=== PATIENT | female | born 1995 | race African-American/Black ===

== ENCOUNTER 2020-05-01 18:04 | Emergency (ER) | payer SELFPAY ==
[2020-05-02 12:44] LABS: SARS-CoV-2 MS2 Positive; SARS-CoV-2 N Gene Negative; SARS-CoV-2 S Gene Negative; SARS-CoV-2 by NAA Not Detected (NotDetected); SARS-CoV-2 orf1ab Negative
== END 2020-05-01 18:45 | disposition home or self-care (01) ==
LOC: ERS 18:04
DX: Z20.828 Contact with and (suspected) exposure to other viral communicable diseases (principal); J45.909 Unspecified asthma, uncomplicated; E11.9 Type 2 diabetes mellitus without complications; Z79.4 Long term (current) use of insulin
CPT/HCPCS: 87635; 99283; U0003